=== PATIENT | male | born 1950 | race Caucasian/White ===

== ENCOUNTER 2018-07-21 07:26 | Day surgery (SDC) | payer MEDICARE ==
[2018-07-19 14:43] VITALS: BMI 28.0
[~2018-07-21 07:26] MED LIST: LACTATED RINGERS 1,000 ML IV SCH; LIDOCAINE 1% 20 ML VIAL (10MG/ML) FOR IV START INTRADERMA PRN; MOXIFLOXACIN HCL 0.5% DROPS 3 ML BTL OP ONE; TETRACAINE 0.5% OPHTH (PF) DROPS 4 ML BTL OP ONE; TIMOLOL 0.5% OPHTH DROPS 5 ML BTL OP ONE
[2018-07-21] MEDS: PHENYLEPHRINE 2.5% OPHTH DRP 2ML OP NR ×3 (07:49→08:02)
[2018-07-21 07:53] VITALS: RESP 16; TEMP 98
[2018-07-21] MEDS: CYCLOPENTOLATE 1% OPHTH SOLN 2 ML BTL OP ONE ×3 (07:53→08:06)
[2018-07-21] MEDS ORDERED: fentaNYL (PF) 50 MCG/ML 2 ML AMP ONE (08:47)
[2018-07-21] MEDS ORDERED: MIDAZOLAM 2 MG/2 ML VIAL ONE (08:47)
[2018-07-21] MEDS ORDERED: ATROPINE OPHTH SOLN 1% 5ML BTL LEFT EYE ONE (08:58)
[2018-07-21] MEDS ORDERED: HYALURONATE SODIUM INTRAOCULAR 1 EACH SYRINGE (12MG/ML) INTRAOCULA ONE (08:58)
[2018-07-21] MEDS ORDERED: LIDOCAINE 1% (PF) 10MG/ML VIAL SQ ONE (08:58)
[2018-07-21] MEDS ORDERED: EPINEPHrine (PF) 0.3 ML in BALANCED SALT IRRIG SOLN COMB2 500 ML IRRIGATION ONE (09:00)
--- NOTE | 2018-07-21 09:31 | P.OP ---
Date of Procedure: 07/21/18 Preoperative Diagnosis: NS & CS Postoperative Diagnosis: same Procedure(s) Performed: PIOL, OS Implants: AO1UV 22.0 Anesthesia: MAC Surgeon: Turner Arboleda Estimated Blood Loss (ml): 0 Pathology: none sent Condition: stable Disposition: same day Indications for Procedure: blurry vision Operative Findings: NO complications
[2018-07-21 09:36] VITALS: PULSE 57
[2018-07-21 09:55] VITALS: BP 124/77
--- NOTE | 2018-07-21 23:08 | OP ---
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 POSTOPERATIVE DIAGNOSIS:: Nuclear sclerosis and cortical sclerosis. OPERATION:: Phacoemulsification of cataract and Crystalens implant of the left eye. SURGEON: Dr. Turner Arboleda NARRATIVE:: After obtaining the appropriate consent, the patient was brought to the operating room. There the patient was placed under cardiac monitoring, prepped and draped in the usual sterile manner. The patient was approached from the left temporal side. The @@ mm Joey ring inked in gentian breezy was placed centrally on the cornea. At the 5 o'clock position, a 1.1 mm keratome was used to create a paracentesis port. Through this opening, 1% Xylocaine MPF 50/50 mix with balanced salt solution was injected into the anterior chamber. This was followed by Amvisc stabilization of the anterior chamber with Amvisc viscoelastic. At the 3 o'clock position, a 2.75 mm aleyda keratome was used to create a self-scaling corneal flap incision in a Langerman fashion. Through this opening, a cystotome was introduced to begin a continuous tear capsulorrhexis which was completed using the Utrata forceps. Care was taken to ensure that the capsulorrhexis was at least the size of the james on the anterior cornea. Hydrodissection and hydrodelineation of the lens was accomplished with balanced salt solution. Phacoemulsification of the lens utilizing phaco chop was accomplished in 12.97 seconds at 8% power. Addition Xylocaine MPF was instilled into the anterior chamber. This was followed by removal of the remaining cortex under irrigation and aspiration along with careful polishing of the posterior capsule in a capsule vacuum mode. Additional Amvisc viscoelastic was then used to stabilize the capsular bag, and the [employer] Crystalens AO1UV 22.0 diopter intraocular lens was injected into the capsular bag without difficult. The lens was rotated 270 degrees so that the haptics resided at the 6 and 12 o'clock positions, and all remaining viscoelastic was then removed from within the capsular bag and around the anterior chamber. The eye was brought to normal intraocular pressure through the paracentesis port along with slight hydration of the incision sites. Watertight integrity was confirmed using a fluorescein strip. The patient then received 2 drops of 0.5% timolol followed by 2 drops of Vigamox and 2 drops of 1% atropine. The patient was then lightly patched and shielded in the usual manner. There was no complications from the procedure. The patient tolerated the procedure well and was returned to outpatient recovery in good condition. DICK / LUZ MARIA: [id number] /
== END 2018-07-21 10:25 | disposition home or self-care (01) ==
LOC: OR 07:26
PROVIDERS: ATTEND Ophthalmology
DX: H25.12 Age-related nuclear cataract, left eye (principal); H25.012 Cortical age-related cataract, left eye; H52.03 Hypermetropia, bilateral; H52.223 Regular astigmatism, bilateral; H52.4 Presbyopia; E78.5 Hyperlipidemia, unspecified; Z96.1 Presence of intraocular lens; Z98.49 Cataract extraction status, unspecified eye; Z79.899 Other long term (current) drug therapy; Z87.891 Personal history of nicotine dependence
CPT/HCPCS: 66984; V2632; V2788; J2250; J0171; J3010; J2001

== ENCOUNTER 2021-10-25 09:18 | Day surgery (SDC) | payer MEDICARE ==
[2021-10-23 11:40] VITALS: BMI 27.3
[~2021-10-25 09:18] MED LIST changes: -LIDOCAINE 1% 20 ML VIAL (10MG/ML) FOR IV START INTRADERMA PRN; -MOXIFLOXACIN HCL 0.5% DROPS 3 ML BTL OP ONE; -TETRACAINE 0.5% OPHTH (PF) DROPS 4 ML BTL OP ONE; -TIMOLOL 0.5% OPHTH DROPS 5 ML BTL OP ONE
[2021-10-25 09:43] VITALS: TEMP 97.4
[2021-10-25] MEDS ORDERED: PROPOFOL 10 MG/ML 20 ML VIAL IV ONE (10:41)
--- NOTE | 2021-10-25 11:02 | P.PCN ---
Date of Procedure: 10/25/21 Procedure(s) Performed: BRIEF HISTORY: Patient is a 71-year-old pleasant male scheduled for an elective colonoscopy as a part of screening for colon cancer and strong family history of colon cancer diagnosed in a sister and father in his 50s and 60s respectively. PROCEDURE PERFORMED: Colonoscopy. PREOPERATIVE DIAGNOSIS: Screening for colon cancer/family history of colon cancer. IV sedation per Anesthesia. PROCEDURE: After informed consent was obtained, the patient, was brought into the endoscopy unit. IV sedation was administered by Anesthesia under continuous monitoring. Digital rectal examination was normal. Initially the Olympus CF-160 flexible video colonoscope was then inserted in the rectum, gradually advanced into the cecum without any difficulty. Careful examination was performed as the scope was gradually being withdrawn. Ileocecal valve and the appendiceal orifice were visualized and appeared normal. Prep was excellent. Mucosa of the cecum, ascending colon, transverse colon, descending colon, sigmoid colon, and rectum appeared normal. Retroflexion was performed in the rectum and no lesions were seen. Scattered sigmoid diverticulosis. The patient tolerated the procedure well. IMPRESSION: Normal-appearing colon from rectum to cecum with no evidence of colorectal ne oplasia Scattered sigmoid diverticulosis. RECOMMENDATIONS: Findings of this examination were discussed with the patient as well as his family. He was advised to have a repeat screening colonoscopy in 5 years from now because of the strong family history of colon cancer.
[2021-10-25 11:10] VITALS: RESP 16
[2021-10-25 11:32] VITALS: BP 145/81; PULSE 60
== END 2021-10-25 11:40 | disposition home or self-care (01) ==
LOC: ORWHC2ENDO 09:18
PROVIDERS: ATTEND Internal Medicine Gastroenterology
DX: Z12.11 Encounter for screening for malignant neoplasm of colon (principal); K57.30 Diverticulosis of large intestine without perforation or abscess without bleeding; Z86.010 Personal history of colon polyps; Z80.0 Family history of malignant neoplasm of digestive organs; E78.5 Hyperlipidemia, unspecified; Z98.890 Other specified postprocedural states; Z98.42 Cataract extraction status, left eye; Z98.41 Cataract extraction status, right eye; Z79.899 Other long term (current) drug therapy
CPT/HCPCS: J2704; G0105; 45378